=== PATIENT | male | born 1955 | race African-American/Black ===

== ENCOUNTER 2021-02-12 13:01 | Emergency (ER) | payer OTHER ==
[~2021-02-12] VITALS: Ht 177.8 cm; Wt 117.9 kg
[2021-02-12 13:53] LABS: ABSOLUTE NEUTROPHILS 2.9 thou/uL (1.4-8.2); BASOPHILS 1.3 % (0.0-2.0); EOSINOPHILS 2.4 % (0.0-3.0); HEMATOCRIT 41.3 % (42.0-52.0); HEMOGLOBIN 14.1 gm/dL (14.0-18.0); MCH 31.4 pg (26.0-34.0); MCV 92.2 fL (80.0-100.0); PLATELET COUNT 209 thou/uL (150-400); POLYS 50.3 % (36.0-66.0); RBC 4.48 mil/uL (4.50-6.00); WBC 5.7 thou/uL (4.0-11.0)
[2021-02-12 14:02] LABS: ANION GAP 8 mmol/L (7-16); BUN 12 mg/dL (7-18); CALCIUM 8.8 mg/dL (8.5-10.1); CHLORIDE 103 mmol/L (98-107); CO2 27 mmol/L (21-32); CREATININE 0.9 mg/dL (0.7-1.3); GLUCOSE 197 mg/dL (74-106); POTASSIUM 3.9 mmol/L (3.5-5.1); SODIUM 138 mmol/L (136-145)
--- NOTE | 2021-02-12 14:12 | EKG ---
[address] [address] ELECTROCARDIOGRAM REPORT Name: FRANSISCO MARTINEZ Room #: [facility] M.R.#: [id number] Admission: Attend Phys: Discharge: Date of : 55 Report #: [id number] [facility] ED Test Date: 2021-02-12 Test Time: 13:41:32 Pat Name: FRANSISCO MARTINEZ Department: Room: Gender: Chairperson Anesthesiology: : 1955 Requested By: Nick Monae Order Number: [id number] MD: Milton Prakash Measurements Intervals [place] Rate: 77 P: 49 SC: 154 QRS: 48 QRSD: 137 T: -22 QT: 375 QTc: 425 Interpretive Statements Sinus rhythm Probable left atrial enlargement Right bundle branch block Nonspecific T abnormalities, lateral leads No previous ECG available for comparison Electronically Signed On 02-12-2021 14:12:13 [employer]PER[employer] by Milton Prakash [email or web address] <ELECTRONICALLY SIGNED> By: Milton Prakash MD, [facility] 02/12/21 1412 1341 1341 Milton Prakash MD, FACC /EPI
[2021-02-12 16:17] LABS: URINE BILIRUBIN NEGATIVE (Negative); URINE BLOOD NEGATIVE (Negative); URINE CLARITY CLEAR; URINE COLOR YELLOW; URINE GLUCOSE-RANDOM* TRACE (Negative); URINE KETONES NEGATIVE (Negative); URINE LEUKOCYTES-REFLEX NEGATIVE (Negative); URINE NITRITE-REFLEX NEGATIVE (Negative); URINE PROTEIN (DIPSTICK) NEGATIVE (Negative); URINE UROBILINOGEN 0.2 E.U./dl (0.2-1.0)
[2021-02-12 17:14] VITALS: BP 152/100
[2021-02-12] MEDS ORDERED: ZESTRIL5 MG PO (17:18)
== END 2021-02-12 17:26 | disposition home or self-care (01) ==
LOC: EDSEX 13:01 → ER 13:01
PROVIDERS: Nurse Practitioner
DX: R41.82 Altered mental status, unspecified (principal); Z20.822 Contact with and (suspected) exposure to COVID-19

== ENCOUNTER → 2021-02-21 | Outpatient (CLI) | payer OTHER ==
[~2021-02-21] MED LIST: ZESTRIL5 MG PO
== END ==
LOC: MRI 09:22
PROVIDERS: ATTEND Family Medicine
DX: G45.9 Transient cerebral ischemic attack, unspecified (principal)